=== PATIENT | female | born 1955 | race Caucasian/White ===

== ENCOUNTER 2018-08-17 10:58 | Emergency (ER) | payer OTHER ==
[2018-08-17 11:14] VITALS: BP 129/83
--- NOTE | 2018-08-17 11:36 | XRAY Report ---
Reason: large object fell on top of foot. pain/swelling Procedure Date: 08/17/2018 Accession Number: [id number] / [id number] Procedure: XR - Foot 3 View LT CPT Code: FULL RESULT: EXAM: LEFT FOOT RADIOGRAPHY EXAM DATE: 08/17/2018 11:28 AM. CLINICAL HISTORY: Large object fell on top of foot. Pain/swelling. COMPARISON: None. TECHNIQUE: 3 views. FINDINGS: Bones: Mild inferior calcaneal enthesopathy. Well-corticated fragment near the base of the fifth metatarsal is likely not a traumatic finding but should be correlated for point tenderness. No fractures or bone lesions. Joints: Normal. No subluxations. Soft Tissues: There is apparent focal soft tissue swelling near the base of the fifth metatarsal. IMPRESSION: No definite fracture or dislocation. Please examine the base of the fifth metatarsal laterally to exclude fracture. RADIA
--- NOTE | 2018-08-17 13:36 | ED Physician Documentation ---
PD HPI LOWER EXT INJURY - Stated complaint Stated Complaint: L FOOT INJ - Chief complaint Chief Complaint: Ext Problem - History obtained from History obtained from: Patient - History of Present Illness PD HPI LOW EXT INJURY LOCATION: Left, Foot Type of injury: Blunt / blow (dropped object on her foot, with pain and swelling.) PD PAST MEDICAL HISTORY - Past Medical History Past Medical History: No Cardiovascular: Other - Past Surgical History Past Surgical History: Yes General: Cholecystectomy Ortho: Shoulder arthroplasty, Arthroscopic surgery /[employer]: Hysterectomy - Present Medications Home Medications: Ambulatory Orders Medication Instructions Recorded Confirmed Atenolol 50 mg PO DAILY 05/25/16 05/25/16 - Allergies Allergies/Adverse Reactions: Allergies Allergy/AdvReac Type Severity Reaction Status Date / Time No Known Drug Allergies Allergy Verified 08/17/18 11:14 - Social History Does the pt smoke?: No Smoking Status: Never smoker Does the pt drink ETOH?: Yes Does the pt have substance abuse?: No - Immunizations Immunizations are current?: Yes PD ED PE NORMAL - Vitals Vital signs reviewed: Yes - General General: Alert and oriented X 3, No acute distress, Well developed/nourished - Extremities Extremities: Other (left foot with brusing and swelling distal lateral dorsal foot. Base of little toe tender. Able to flex and ext at toes. Normal sensation and cap refill in toes. ) - Neuro Neuro: Alert and oriented X 3, No motor deficit, No sensory deficit Results - Vitals Vitals: Vital Signs - 24 hr 08/17/18 11:11 Temperature 35.7 C L Heart Rate 74 Respiratory 16 Rate Blood Pressure 129/83 H O2 Saturation 98 Oxygen O2 Source Room air - Rads (name of study) left foot Radiology: Prelim report reviewed (no fractures) PD MEDICAL DECISION MAKING - ED course Complexity details: reviewed results (no fractures), considered differential (offered post op shoe, but she was okay with her usual sneaker shoe. ), d/w patient Departure - Departure Disposition: 01 Home, Self Care Clinical Impression: Contusion, foot Qualifiers: Encounter type: initial encounter Laterality: left Qualified Code(s): S90.32XA - Contusion of left foot, initial encounter Condition: Stable Record reviewed to determine appropriate education?: Yes Instructions: ED Contusion Foot Follow-Up: Halle Hampton MD [Primary Care Provider] - Comments: No fracture seen on x-ray. Ibuprofen or naproxen if needed for pains and add Tylenol if needed. Firm soled shoe if you have it. This should slowly improve over the next several days to week. Discharge Date/Time: 08/17/18 14:07
== END 2018-08-17 14:07 | disposition home or self-care (01) ==
LOC: ED 10:58
DX: S90.32XA Contusion of left foot, initial encounter (principal); W20.8XXA Other cause of strike by thrown, projected or falling object, initial encounter
CPT/HCPCS: 99282